=== PATIENT | male | born 1990 ===

== ENCOUNTER 2023-01-04 15:10 | Emergency (ER) | payer MEDICAID ==
[~2023-01-04] VITALS: Ht 188 cm; Wt 83.9 kg
--- NOTE | 2023-01-04 15:19 | NUR ---
[place] from [place] per [facility] on scene noted with drug paraphernalia on lap and dry blood on arm. pt drowsy but aao x4 and ambulatory. resp even and nonlabored. also with wound to left lower leg. bs 95
[2023-01-04] MEDS ORDERED: VANCOMYCIN 1,000 MG in DEXTROSE 5% 250 ML IV ONE (15:25)
[2023-01-04] MEDS ORDERED: VANCOMYCIN 1,000 MG VIAL ONE (15:47)
[2023-01-04] MEDS ORDERED: cefTRIAXone 1,000 MG VIAL ONE (15:47)
[2023-01-04 15:58] LABS: EOSINOPHILS # (AUTO) 0.2 K/uL (0-0.4); EOSINOPHILS % (AUTO) 3.8 % (0.0-4.0); HEMATOCRIT 29.2 % (36-52); HEMOGLOBIN 9.2 g/dL (12.0-18.0); LYMPHOCYTES # (AUTO) 1.9 K/uL (2.0-11.5); LYMPHOCYTES % (AUTO) 37.5 % (20.5-51.1); MEAN CORPUSCULAR HEMOGLOBIN 23 pg (27-31); MEAN CORPUSCULAR HGB CONC 32 g/dL (33-37); MEAN CORPUSCULAR VOLUME 72.5 fL (80-94); MONOCYTES # (AUTO) 0.5 K/uL (0.8-1.0); MONOCYTES % (AUTO) 10.6 % (1.7-9.3); NEUTROPHILS # (AUTO) 2.4 K/uL (1.8-7.7); NEUTROPHILS % (AUTO) 47.1 % (42.2-75.2); PLATELET COUNT (AUTO) 331 K/uL (140-450); RED BLOOD CELL COUNT(AUTO) 4.03 MIL/uL (4.20-6.10); RED CELL DISTRIBUTION WIDTH 17.4 % (11.6-13.7); WHITE BLOOD COUNT (AUTO) 5.1 K/uL (4.8-10.8)
[2023-01-04 16:20] LABS: ALBUMIN 3.4 g/dL (3.4-5.0); ANION GAP 11.8 (8-16); ASPARTATE AMINOTRANSFERASE 23 U/L (15-37); CHLORIDE 104 mmol/L (98-107); CREATININE 1.3 mg/dL (0.6-1.3); GFR ARICAN-AMERICAN 81 mL/min (>90); GLUCOSE 100 mg/dL (74-106); POTASSIUM 4.8 mmol/L (3.5-5.1); SODIUM SERUM 139 mmol/L (136-145); TOTAL BILIRUBIN 0.2 mg/dL (0.0-1.0); UREA NITROGEN, BLOOD 20 mg/dL (7-18)
--- NOTE | 2023-01-04 16:35 | NUR ---
lle wound cleansed and bandaged and tolerated well Addendum: 01/04/23 at 1635 by [id number] pics taken
--- NOTE | 2023-01-04 17:29 | NUR ---
drowsy but arousable. resp even and nonlabored. vss. iv atb running and tolerated well. pending admission
--- NOTE | 2023-01-04 19:20 | NUR ---
report given to yulissa schneider
--- NOTE | 2023-01-04 19:30 | NUR ---
Patient resting in bed, A/Ox4, chest rise and fall symmetrical, no c/o pain or s/s of distress, on monitor.
[2023-01-04 19:50] LABS: APPEARANCE,URINE CLEAR (CLEAR); BILIRUBIN,URINE NEGATIVE (NEGATIVE); BLOOD, URINE NEGATIVE (NEGATIVE); COLOR,URINE YELLOW (YELLOW); LEUKOCYTE ESTERASE ,URINE TRACE (NEGATIVE); NITRITE, URINE POSITIVE (NEGATIVE); PH,URINE 6.5 (5.0-9.0); UGLUCOSE NEGATIVE (NEGATIVE)
[2023-01-04 20:09] LABS: BARBITURATE, URINE NEGATIVE ng/ml (NEG <=200); BENZODIAZEPINE, URINE NEGATIVE ng/mL (NEG <=200); CANNABINOID, URINE NEGATIVE ng/mL (NEG <=50); COCAINE, URINE NEGATIVE ng/mL (NEG <=300); OPIATE, URINE NEGATIVE ng/mL (NEG <=2000); PHENCYCLIDINE SCREEN,URINE NEGATIVE ng/mL (NEG <=25)
--- NOTE | 2023-01-04 20:18 | NUR ---
Wound care pictures taken for patient's wounds, wounds documented in EMR. Printers will not print pictures.
--- NOTE | 2023-01-04 20:31 | NUR ---
Patient to be transferred to [facility]. Is being transferred due to Insurance Reason. Receiving facility has accepting physician and available space. ER physician has signed transfer form. Patient or responsible constitution party has agreed to transfer and signed form. Patient belongings inventoried and will be sent with patient. Copy of nursing notes, lab reports, EKG, Physicians Orders and X-rays to be sent with patient. Report called to Carole NUNO at receiving facility. Carole NUNO verbalized understanding of report, no further questions. [facility] ambulance service has arrived for transfer. [facility] ambulance staff given report, and [facility] ambulance staff verbalized understanding of report, no further questions.
[2023-01-04 20:41] VITALS: BP 145/85
--- NOTE | 2023-01-04 20:46 | NUR ---
Due to AM shift Nurse not completing Triage report during AM shift, triage was completed based on report from AM shift Nurse.
[2023-01-04 20:52] VITALS: BP 148/75
== END 2023-01-04 20:52 | disposition short-term general hospital (02) ==
LOC: MED 15:10
DX: F15.10 Other stimulant abuse, uncomplicated (principal); Z20.822 Contact with and (suspected) exposure to COVID-19; L03.116 Cellulitis of left lower limb; I10 Essential (primary) hypertension; Z79.899 Other long term (current) drug therapy
CPT/HCPCS: 36415; 73590; 73620; 80053; 80305; 81003; 82550; 83605; 84484; 85025; 87040; 87070; 87086; 87426; 93005; 96365; 96366; 96368; 99291; J0696; J3370; Q0092